=== PATIENT | female | born 1980 | race Two or more races ===

== ENCOUNTER → 2025-01-31 | Day surgery (SDC) | payer OTHER ==
[~2025-01-31] VITALS: Ht 154.9 cm; Wt 86.2 kg
[~2025-01-31] MED LIST: ASCO500T11 PO; CHOLCAP10 PO; DAPA1TAB4 PO; FER325T PO; FINE20TA PO; LIDOCAINE 2% (LOCAL ANESTH.) PF 5ml SDV ONE; LISI20TA56 PO; METF-1145 PO; MULT-1018 PO; PROPOFOL 10 MG/ML 20 ML IV ONE; SEMA2INJ3 SC
[2025-01-31 09:18] VITALS: PULSE 77; RESP 16; TEMP 98.2; O2SAT 96
--- NOTE | 2025-01-31 09:20 | DVHHP2 ---
GI H&P Pre-Op Assessment Date: 01/31/25 Chief complaint: melena HPI: per clinic note Past medical history: per clinic note Past surgical history: per clinic note Family history: per clinic note Physical exam: General: NAD, AAOX3 HEENT: PERRL, no scleral icterus, normal hearing, gums without lesions or bleeding, oropharynx clear without erythema or exudate. Neck: Supple without enlargement of the thyroid, or lymphadenopathy. Chest: Normal size and shape, no tenderness, lung berrios clear to auscultation and percussion, nonlabored breathing. Heart: RRR, no murmur Abdomen: non-distended, no tenderness to palpation, +BS, no hepatosplenomegaly Extremities: no edema Neurological: CN II-XII intact, sensation intact in all extremities, 5+ strength in all extremities Skin: No rashes, No jaundice Assessment: - melena Plan: - EGD - Risks (bleeding, infection, perforation, reaction to sedation medications and cardiopulmonary arrest) and benefit of the procedure were explained to patient. Patient agrees to undergo the procedure. CAROLYN WHEELER MD Jan 31, 2025 09:20
--- NOTE | 2025-01-31 09:22 | DVHOP2 ---
Operative Report DATE OF OPERATION: 01/31/25 PROCEDURE: Upper Endoscopy. PREOPERATIVE INDICATION: The patient is a 44 -year-old female undergoing endoscopy for melena. POSTOPERATIVE DIAGNOSES: 1. Mild gastritis 2. Residual food in the stomach that is likely due to gastroparesis from Ozempic use. PROCEDURE PERFORMED BY: Clint Mccrary SCOPE: Olympus videoendoscope. ASA CLASS: 3 PREOPERATIVE MEDICATIONS: Sagar ABIOLA PROCEDURE IN DETAIL: After obtaining an informed consent, the patient was placed on her back. The patient was then sedated with the above medications. A bite block was placed between her teeth. The endoscope was then passed through the oropharynx, into the esophagus, and through the stomach and pylorus up to the second and third part of the duodenum. There was residual food in the duodenum. There was residual food in the stomach that is likely due to gastroparesis from Ozempic use. There was mild gastritis. Gastric biopsies were obtained using cold forceps. The GE junction was normal in appearance at 33 cm. The esophagus was normal in appearance. The endoscope was then withdrawn. The patient tolerated the procedure well without difficulty. COMPLICATIONS : None SPECIMENS: Gastric biopsies DISPOSITION: D/C to home PLAN: 1. Await for biopsy result CLINT MCCRARY MD Jan 31, 2025 09:22
--- NOTE | 2025-01-31 09:22 | DVHDS2 ---
Physician Discharge Progress N Final Diagnosis: Mild gastritis, residual food in the stomach Operations or Procedures: Operations or Procedures EGD with cold biopsies Condition on Discharge: Good Disposition: Home Discharge Instructions: Diet: Regular Activity: No Restrictions, As Tolerated Medications: Resume with previous home medications Follow Up Care: Discharge Statement: "Patient was advised to return to the ER or call 911 if any headaches, dizziness, shortness of breath, chest pain, abdominal pain, bleeding, fevers, or worsening of medical condition. Patient was counseled about treatment plan, medications, possible side effects, patientverbalized understanding. All questions were answered to the best of my ability. This discharge took greater then 30 minutes in planning, reviewing documentation, counseling the patient, and discussing with other team members." CAROLYN WHEELER MD Jan 31, 2025 09:22
[2025-01-31 10:00] VITALS: BP 108/65; PULSE 66; RESP 16; O2SAT 98
== END | disposition home or self-care (01) ==
LOC: GI 07:45
PROVIDERS: ATTEND Internal Medicine Gastroenterology
DX: K92.1 Melena (principal); K29.50 Unspecified chronic gastritis without bleeding; B96.81 Helicobacter pylori [H. pylori] as the cause of diseases classified elsewhere; T18.2XXA Foreign body in stomach, initial encounter; I10 Essential (primary) hypertension; E11.9 Type 2 diabetes mellitus without complications; E66.9 Obesity, unspecified; Z68.35 Body mass index [BMI] 35.0-35.9, adult; Z79.899 Other long term (current) drug therapy; Z86.2 Personal history of diseases of the blood and blood-forming organs and certain disorders involving the immune mechanism; Z90.49 Acquired absence of other specified parts of digestive tract; Z98.891 History of uterine scar from previous surgery; W44.F3XA Food entering into or through a natural orifice, initial encounter
CPT/HCPCS: 43239; 82962; 88305; 88342; J2003; J2704; J7030